=== PATIENT | female | born 1975 | race Caucasian/White ===

== ENCOUNTER 2023-05-06 13:05 | Emergency (ER) | payer OTHER ==
[~2023-05-06] VITALS: Ht 157.5 cm; Wt 62.7 kg
[2023-05-06 13:06] VITALS: TEMP 98
[2023-05-06 14:11] LABS: BASO # 0.1 10^3/uL (0.0-0.2); BASO % 0.8 % (0.0-1.0); EOS # 0.1 10^3/uL (0.0-0.5); EOS % 2.2 % (0.0-3.0); HEMOGLOBIN 14.3 g/dl (12.0-15.5); LYMPH # 1.4 10^3/uL (1.5-5.0); LYMPH % 21.1 % (24.0-44.0); MEAN CORPUSCULAR HEMOGLOBIN 31.5 pg (27.0-33.0); MEAN CORPUSCULAR HGB CONC 34.9 g/dl (32.0-36.5); MEAN CORPUSCULAR VOLUME 90.3 fl (80.0-96.0); MONO # 0.6 10^3/uL (0.0-0.8); MONO % 9.5 % (2.0-8.0); NEUTROPHILS # 4.3 10^3/uL (1.5-8.5); NEUTROPHILS % 65.9 % (36.0-66.0); PLATELET COUNT, AUTOMATED 337 10^3/uL (150-450); RED BLOOD COUNT 4.54 10^6/uL (4.00-5.40); WHITE BLOOD COUNT 6.5 10^3/uL (4.0-10.0)
[2023-05-06 14:38] LABS: CK-MB VALUE MASS < 1.0 NG/ML (<3.6); LIPASE 31 U/L (12-53)
[2023-05-06 14:40] LABS: ALBUMIN 3.9 G/DL (3.2-5.2); ALKALINE PHOSPHATASE 56 U/L (46-116); ALT/SGPT 11 U/L (7.0-40); AST/SGOT < 8 U/L (<34); BILIRUBIN,DIRECT 0.1 MG/DL (<0.4); BILIRUBIN,TOTAL 0.4 MG/DL (0.3-1.2); BLOOD UREA NITROGEN 12 MG/DL (9-23); CALCIUM LEVEL 8.7 MG/DL (8.5-10.1); CARBON DIOXIDE LEVEL 25 MMOL/L (20-31); CHLORIDE LEVEL 104 MMOL/L (98-107); CREATININE FOR GFR 0.64 MG/DL (0.55-1.30); GLOMERULAR FILTRATION RATE > 60.0 (>58); GLUCOSE, FASTING 95 MG/DL (60-100); POTASSIUM SERUM 4.1 MMOL/L (3.5-5.1); SODIUM LEVEL 135 MMOL/L (136-145); TOTAL PROTEIN 7.2 G/DL (5.7-8.2)
[2023-05-06 14:42] LABS: THYROID STIMULATING HORMONE 0.573 uIU/ML (0.55-4.78)
[2023-05-06 14:44] LABS: CPK CREATINE PHOSPHOKINASE 88 U/L (34-145); MB/CK RELATIVE INDEX 1.13 (< OR =4)
[2023-05-06] MEDS ORDERED: IBUP-1022 PO (14:49)
[2023-05-06 15:05] VITALS: O2SAT 100
[2023-05-06] MEDS ORDERED: ISOVUE-370 76% 100ML VIAL As Ordered ONE (15:14)
[2023-05-06 15:42] LABS: CK-MB VALUE MASS < 1.0 NG/ML (<3.6)
[2023-05-06 15:45] LABS: CPK CREATINE PHOSPHOKINASE 89 U/L (34-145); MB/CK RELATIVE INDEX 1.12 (< OR =4)
[2023-05-06] MEDS ORDERED: CARA1TAB6 PO (16:24)
[2023-05-06] MEDS ORDERED: PROT1TAB2 PO (16:24)
[2023-05-06 16:30] VITALS: BP 125/84
== END 2023-05-06 16:53 | disposition home or self-care (01) ==
LOC: M ED 13:05
DX: K29.70 Gastritis, unspecified, without bleeding (principal); R06.02 Shortness of breath; Z82.49 Family history of ischemic heart disease and other diseases of the circulatory system
CPT/HCPCS: 71045; 71275; 80048; 80076; 82550; 82553; 83690; 83880; 84439; 84443; 84484; 85025; 93005; 93041; 94760; 99285; Q9967

== ENCOUNTER → 2023-09-24 | Outpatient (REF) | payer OTHER ==
[~2023-09-24] MED LIST: CARA1TAB6 PO; IBUP-1022 PO; PROT1TAB2 PO
== END ==
LOC: M LAB REF 17:17
PROVIDERS: ATTEND Physician Assistant
DX: L72.3 Sebaceous cyst (principal)

== ENCOUNTER → 2023-11-22 | Outpatient (CLI) | payer OTHER | LOC: M PLARAD 12:46 | PROVIDERS: ATTEND Physician Assistant | DX: M47.22 Other spondylosis with radiculopathy, cervical region (principal); M50.21 Other cervical disc displacement, high cervical region ==